=== PATIENT | male | born 1950 | race Caucasian/White ===

== ENCOUNTER 2017-03-08 11:11 | Emergency (ER) | payer MEDICARE ==
[~2017-03-08] VITALS: Ht 188 cm; Wt 118.6 kg
[2017-03-08 11:21] VITALS: BP 156/82; PULSE 92; RESP 16; TEMP 97.4; O2SAT 96
[2017-03-08] MEDS ORDERED: [UNRECOGNIZED DRUG - OTHER] PO (11:36)
[2017-03-08 11:50] VITALS: BP_SYST 142; BP_SYST 148; BP_SYST 183; BP_DIAS 76; BP_DIAS 80; BP_DIAS 92; RESP 18
[2017-03-08] MEDS ORDERED: TETANUS/DIPHTHERIA TOXOID ADULT 0.5 ML VIAL IM ONE (12:30)
[2017-03-08] MEDS ORDERED: BACI500O9 TOPICAL (12:33)
--- NOTE | 2017-03-08 12:40 | PD ---
HPI Chief Complaint: Headache Time Seen by Provider: 11:36 Travel History International Travel<30 days: No Contact w/Intl Traveler<30days: No Traveled to known affect area: No History of Present Illness HPI 66-year-old male here for evaluation of laceration to his forehead and scalp. Patient reports while sitting on his balcony and his condo he had a coughing episode which caused him to get dizzy and fall forward hitting his head on the metal side rail. There was no loss of consciousness. He remembers the entire event. Patient denies chest pain, shortness of breath when the episode occurred. He reports he's had similar episodes in the past when he coughs continuously. The symptoms resolved completely when the coughing stops. He currently he denies any headache, neck pain, visual changes, dizziness, paresthesia or weakness of extremities, chest pain, shortness of breath or abdominal pain. He denies any pain currently. PFSH Past Medical History Medical History: Denies Significant Hx Hx Anticoagulant Therapy: No Diabetes: Yes (pre diabetic) Patient Takes Glucophage: No Diminished Hearing: No Immunizations Current: Yes Tetanus Vaccination: > 5 Years Influenza Vaccination: No Social History Alcohol Use: Yes (6 week) Tobacco Use: No Substance Use: No Allergies-Medications (Allergen,Severity, Reaction): Coded Allergies: lactose (Verified Allergy, Intermediate, congestion, 03/08/17) Reported Meds & Prescriptions Reported Meds & Active Scripts Active Reported [prediabetic med] 1 Tab PO DAILY Review of Systems Except as stated in HPI: all other systems reviewed are Neg General / Constitutional: No: Fever Eyes: No: Visual changes HENT: No: Headaches Cardiovascular: No: Chest Pain or Discomfort Respiratory: No: Shortness of Breath Gastrointestinal: No: Abdominal Pain Genitourinary: No: Dysuria Musculoskeletal: No: Pain Neurologic: No: Weakness Physical Exam Narrative GENERAL: Alert 66-year-old male with 2 superficial lacerations to the left forehead and scalp. He is well-appearing. SKIN: Focused skin assessment warm/dry. HEAD: Atraumatic. Normocephalic. EYES: Pupils equal and round. No scleral icterus. No injection or drainage. ENT: No nasal bleeding or discharge. Mucous membranes pink and moist. NECK: Trachea midline. No JVD. No cervical midline tenderness CARDIOVASCULAR: Regular rate and rhythm. No murmur appreciated. Chest wall tenderness RESPIRATORY: No accessory muscle use. Clear to auscultation. Breath sounds equal bilaterally. GASTROINTESTINAL: Abdomen soft, non-tender, nondistended. Hepatic and splenic margins not palpable. MUSCULOSKELETAL: No obvious deformities. No clubbing. No cyanosis. No edema. NEUROLOGICAL: Awake and alert. No obvious cranial nerve deficits. Motor grossly within normal limits. Normal speech. Ambulating with a steady gait. PSYCHIATRIC: Appropriate mood and affect; insight and judgment normal. Data Data Last Documented VS Vital Signs Date Time Temp Pulse Resp B/P (MAP) Pulse Ox O2 Delivery O2 Flow Rate FiO2 03/08/17 11:50 84 18 148/76 (100) 93 18 142/80 (100) 99 18 183/92 (122) 03/08/17 11:36 98 Room Air 03/08/17 11:21 97.4 Orders Orders Tetanus/Diphtheria Tox Adult (Tetanus/Di (03/08/17 12:30) MDM Medical Decision Making Medical Screen Exam Complete: Yes Emergency Medical Condition: Yes Differential Diagnosis Facial laceration, skull fracture, contusion, ICH Narrative Course 66-year-old male here for evaluation of laceration to his forehead and scalp. Patient reports while sitting on his balcony and his condo he had a coughing episode which caused him to get dizzy and fall forward hitting his head on the metal side rail. There was no loss of consciousness. He remembers the entire event. Patient denies chest pain, shortness of breath when the episode occurred. He reports he's had similar episodes in the past when he coughs continuously. The symptoms resolved completely when the coughing stops. He currently he denies any headache, visual changes, dizziness, paresthesia or weakness of extremities, chest pain, shortness of breath. He refused all workup except laceration closure. The following diagnostic studies were discussed with patient CT of the brain, EKG, blood work which she refused all. He is well-appearing. He has a normal neurologic exam. His vital signs are stable. His orthostatic blood pressures are normal. I do not believe this was a syncopal episode. His lacerations were repaired. Return precautions discussed. Patient verbalizes understanding and agrees to plan Procedures Procedure Narrative LACERATION LOCATION: Scalp, left forehead LENGTH: Wound #1-3 cm, wound #2-2.5 CM NUMBER OF STITCHES/NATY: [12] REPAIR: The area of the laceration was prepped with Betadine and sterilely draped. The laceration was infiltrated with 1% lidocaine with epi. The wound was copiously irrigated and explored without evidence of foreign body, tendon injury or neurovascular injury. The wound was closed using 6-0 Ethilon. This was a single layer repair. A sterile dressing was applied. The patient was advised to keep the dressing clean and dry. Patient tolerated the procedure well. Diagnosis Primary Impression: Facial laceration Qualified Codes: S01.81XA - Laceration without foreign body of other part of head, initial encounter Additional Impression: Head injury Qualified Codes: S09.90XA - Unspecified injury of head, initial encounter Referrals: Primary Care Physician Additional Instructions: Sutures need to be removed in 5-7 days. Do not submerge the wound in water. He may shower and wash the area with soap and water daily. Apply the ointment as directed. Return to the emergency department immediately if he developed severe headache, repeated vomiting, difficulty walking, visual changes, or any new concerning symptom Scripts Bacitracin Topical (Bacitracin Topical) 500 Unit/Gm Oint 1 APPLIC TOPICAL DAILY for Infection, #30 GM 0 Refills Prov: Miya Adrian 03/08/17 Disposition: 01 DISCHARGE HOME Condition: Stable Miya Adrian Mar 08, 2017 12:40
== END 2017-03-08 12:47 | disposition home or self-care (01) ==
LOC: PHEFT 11:11
DX: S01.81XA Laceration without foreign body of other part of head, initial encounter (principal); S01.01XA Laceration without foreign body of scalp, initial encounter; W19.XXXA Unspecified fall, initial encounter; Y93.89 Activity, other specified; Y92.098 Other place in other non-institutional residence as the place of occurrence of the external cause; Z23 Encounter for immunization
CPT/HCPCS: 12002; 12011; 90471; 90714